=== PATIENT | male | born 1995 | race Two or more races ===

== ENCOUNTER 2024-06-28 21:04 | Emergency (ER) | payer SELFPAY ==
[2024-06-28] MEDS ORDERED: Lactated Ringers 1,000 ML IV ONE (21:05)
[2024-06-28] MEDS: HYDROmorphone 0.5 MG/0.5 ML Syringe IVPUSH ONE (21:44)
[2024-06-28] MEDS: Sodium Chloride 0.9% 1,000 ML IV ONE (21:45)
[2024-06-28] MEDS: Ondansetron 4 MG/2 ML SDV IVPUSH ONE (21:45)
[2024-06-28] MEDS: Sodium Chloride 0.9% 10 ML Syringe FLUSH PRN (21:45)
[2024-06-28] MEDS ORDERED: dexmedeTOMIDine HCl 200 MCG/2 ML SDV ONE (21:53)
[2024-06-28] MEDS ORDERED: Rocuronium 50 MG/5 ML Vial ONE (21:53)
[2024-06-28] MEDS ORDERED: Lidocaine 1% 5 ML VIAL ONE (21:53)
[2024-06-28] MEDS ORDERED: fentaNYL 250 MCG/5 ML SDV ONE (21:53)
[2024-06-28] MEDS ORDERED: Dexamethasone 4 MG/ML 5 ML MDV ONE (21:53)
[2024-06-28] MEDS ORDERED: Propofol 200 MG/20 ML SDV ONE ×2 (21:53→22:20)
[2024-06-28] MEDS ORDERED: Ondansetron 4 MG/2 ML SDV ONE (21:53)
[2024-06-28] MEDS ORDERED: Midazolam 1 MG/ML 2 ML SDV ONE (21:54)
[2024-06-28 21:56] LABS: BASOPHILS ABSOLUTE AUTO 0.1 K/mm3 (0.0-0.2); BASOPHILS PERCENT AUTO 0.4 % (0.0-1.0); EOSINOPHILS ABSOLUTE AUTO 0.1 K/mm3 (0.0-0.4); EOSINOPHILS PERCENT AUTO 0.4 % (0.0-6.0); HEMATOCRIT 47.3 % (42.0-52.0); IMMATURE GRAN ABSOLUTE AUTO 0.03 K/mm3 (0.00-0.05); IMMATURE GRAN PERCENT AUTO 0.2 % (0.0-0.4); LYMPHOCYTES ABSOLUTE AUTO 1.7 K/mm3 (1.0-4.8); LYMPHOCYTES PERCENT AUTO 12.9 % (24.0-44.0); MEAN CORPUSCULAR HEMOGLOBIN 28.4 pg (28.0-32.0); MEAN CORPUSCULAR HGB CONC 33.8 g/dl (32.0-36.0); MEAN PLATELET VOLUME 11.2 fl (9.4-12.4); MONOCYTES PERCENT AUTO 7.1 % (0.0-8.0); NEUTROPHILS ABSOLUTE AUTO 10.6 K/mm3 (1.8-7.7); PLATELET COUNT,PLT 259 K/mm3 (150-400); RED BLOOD CELL COUNT 5.63 M/mm3 (4.52-5.90); WHITE BLOOD CELL COUNT,WBC 13.46 K/mm3 (3.9-11.3)
[2024-06-28] MEDS: Iopamidol 612 MG/ML 100 ML Bottle IVPUSH ONE (22:06)
[2024-06-28] MEDS: Sodium Chloride 0.9% 10 ML Syringe FLUSH ONE (22:06)
[2024-06-28 22:15] LABS: A/G RATIO 1.2 (1-2); ALANINE AMINOTRANSFERASE,ALT 31 U/L (16-63); ALBUMIN 4.4 g/dl (3.4-5.0); ALKALINE PHOSPHATASE 79 U/L (46-116); ANION GAP 12.6 (5-15); ASPARTATE AMNIOTRANSFERASE,AST 17 U/L (15-37); BILIRUBIN TOTAL 0.6 mg/dL (0.2-1.0); BLOOD UREA NITROGEN,BUN 11 mg/dL (7-18); C-REACTIVE PROTEIN 0.17 mg/dL (<0.30); CALCIUM 9.5 mg/dL (8.5-10.1); CARBON DIOXIDE,CO2 27 mEq/L (21-32); CHLORIDE,CL 103 mEq/L (98-107); CREATININE 1.1 mg/dL (0.7-1.3); ESTIMATED GFR 94 mL/min (>60); GLUCOSE RANDOM 100 mg/dL (70-99); MAGNESIUM 1.7 mg/dL (1.8-2.4); POTASSIUM,K 3.6 mEq/L (3.5-5.1); PROTEIN TOTAL,TP 8.1 g/dl (6.4-8.2); SODIUM,NA 139 mEq/L (136-145)
[2024-06-28] MEDS ORDERED: Sugammadex Sodium 200 MG/2 ML VIAL IV ONE (22:44)
[2024-06-28] MEDS ORDERED: Sodium Chloride 0.9% 10 ML Syringe FLUSH PRN (23:10)
[2024-06-28] MEDS ORDERED: Lactated Ringers 1,000 ML IV SCH (23:15)
[2024-06-28] MEDS ORDERED: Piperacillin/Tazobactam 4.5 GM Vial ONE (23:24)
[2024-06-28] MEDS ORDERED: Sodium Chloride 0.9% 100 ML ONE (23:25)
[2024-06-28] MEDS ORDERED: Piperacillin/Tazobactam 4.5 GM in Sodium Chloride 0.9% 100 ML IV ONE (23:25)
[2024-06-28] MEDS: Lidocaine 1% 20 ML MDV ONE (23:39)
== END 2024-06-29 08:25 | disposition home or self-care (01) ==
LOC: EDBD 21:04 → JD.ED 21:04
DX: K35.80 Unspecified acute appendicitis (principal); F17.210 Nicotine dependence, cigarettes, uncomplicated; Z79.899 Other long term (current) drug therapy
CPT/HCPCS: 00840; 36415; 74177; 74177-26; 80053; 83735; 85025; 86140; 96361; 96374; 96375; 99140; 99284; 99285-25; J1100; J1170; J2250; J2405; J2704; J3010; J3490; J7030; J7120; Q9967